=== PATIENT | female | born 1995 | race African-American/Black ===

== ENCOUNTER → 2016-10-30 | Outpatient (CLI) | payer OTHER ==
[2014-07-01 11:37] VITALS: BP 116/72
[~2016-10-30] MED LIST: DOCU-27 PO; INSU100C SQ; INSU100I13 SQ; METR500T4 PO; ONDA4TAB10 SL; PANT40TA3 PO; Polyethylene Glycol 3350 PO
--- NOTE | 2016-10-30 13:09 | RAD ---
Radionuclide gastric emptying study, 10/30/2016: History: Abdominal pain, diabetes The study was performed utilizing a solid test meal radiolabeled with 2.1 mCi of technetium 99m sulfur colloid. The time to half emptying of the radionuclide from the stomach was estimated at 118 minutes. A normal T1/T2 is 60 minutes +/- 30 minutes. IMPRESSION: Mildly delayed gastric emptying
== END | disposition home or self-care (01) ==
LOC: NM 09:24
PROVIDERS: ATTEND Internal Medicine Gastroenterology
DX: K30 Functional dyspepsia (principal); E11.43 Type 2 diabetes mellitus with diabetic autonomic (poly)neuropathy; K31.84 Gastroparesis
CPT/HCPCS: 78264